=== PATIENT | male | born 1970 | race Caucasian/White ===

== ENCOUNTER 2019-08-16 21:17 | Inpatient (IN) | payer OTHER ==
[2019-08-16] MEDS ORDERED: Aggrastat 12.5 MG/250 ML 250 ML ONE (22:04)
[2019-08-16] MEDS ORDERED: Clopidogrel Bisulfate 300 MG TAB ONE (22:04)
[2019-08-16] MEDS ORDERED: Heparin 10,000 UNITS/1 ML VIAL ONE (22:31)
[2019-08-16] MEDS ORDERED: Zolpidem Tartrate 5 MG TAB PO PRN (22:39)
[2019-08-16] MEDS ORDERED: Morphine 2 MG/ML SYRINGE SLOW IVP PRN (22:39)
[2019-08-16] MEDS ORDERED: Nitroglycerin 0.4 MG TAB (25 Tab Bottle) SL PRN (22:39)
[2019-08-16] MEDS ORDERED: Morphine 4 MG/ML VIAL SLOW IVP PRN (22:39)
[2019-08-16] MEDS ORDERED: Sodium Chloride 0.9% 1,000 ML IV SCH (22:45)
[2019-08-16 23:11] VITALS: BMI 44.6
[2019-08-16] MEDS: Aggrastat 12.5 MG/250 ML 250 ML IVPB SCH (23:47)
[2019-08-17 00:18] LABS: Troponin I 9.933 ng/mL (< 0.028)
--- NOTE | 2019-08-17 01:05 | HP ---
HISTORY OF PRESENT ILLNESS: Shaun Sales is a 48-year-old white male, who presented to [facility] with chest discomfort. He states that in 2011, he had a myocardial infarction and was hospitalized at [facility]. He never did have a cardiac catheterization because he said he did not have insurance at the time. He did see Dr. Chinchilla in April 2018 and underwent Lexiscan Cardiolite testing, which revealed no evidence of ischemia. Echo ejection fraction was 60% to 65% with diastolic dysfunction, mild tricuspid regurgitation , mild mitral regurgitation, mild concentric left ventricular hypertrophy. He never did return for followup. He states he has not been having any problems. He has not had any chest pain, shortness of breath, fever, or cough. Tonight at approximately 8:00 p.m., he began to have onset of substernal chest pressure associated with diaphoresis, nausea, and vomiting twice. He denies any significant shortness of breath. He went to the hospital in [place], was found to have on his EKG, normal sinus rhythm, left axis deviation, incomplete right bundle-branch block. There was [address]-segment elevation in II, III, and AVF, along with reciprocal changes in aVL and V2. He was given aspirin, intravenous fentanyl, intravenous metoprolol. He was then transferred here after he received 7000 units of heparin. He was taken directly to the cardiac mill laborer. PAST MEDICAL HISTORY: He denies any history of hypertension, diabetes, or hypercholesterolemia. He states he had MO in 2011. MEDICATIONS: None. ALLERGIES: NONE. OPERATIONS: None. SOCIAL HISTORY: He smoked many years ago. He does not drink. FAMILY HISTORY: Father had myocardial infarction. REVIEW OF SYSTEMS: Unremarkable. PHYSICAL EXAMINATION: VITAL SIGNS: Blood pressure 130/82, pulse of 90. HEENT: PERRL. CHEST: Clear. CARDIAC: S1 and S2 normal without any S3, S4, or murmurs. Carotid upstrokes normal without bruits. ABDOMEN: Obese. Normal bowel sounds. No tenderness or organomegaly. EXTREMITIES: Revealed 1+ pretibial edema. NEUROLOGIC: Grossly intact. SKIN: Warm and dry. LABORATORY DATA: EKG findings as described above. Hemoglobin 17.7, hematocrit 58.0, white count 9400. Sodium 140, potassium 3.8, chloride 105, carbon dioxide 23, BUN 11, creatinine 1.37, glucose 132. Troponin I of 0.038. IMPRESSION: 1. Inferior ST-elevation myocardial infarction. 2. History of previous myocardial infarction in 2011. 3. Distant smoker. 4. Positive family history. 5. Obesity. 6. Renal insufficiency. PLAN: The patient was taken to the cardiac mill lab[facility] and found to have totally occluded distal right coronary artery and underwent drug-eluting stent placement. At the current time post procedure, he is pain free. Job ID: [id number] [facility]
[2019-08-17] MEDS: cloNIDine 0.1 MG TAB PO PRN ×2 (01:28→12:39)
[2019-08-17] MEDS: Aggrastat 12.5 MG/250 ML 250 ML IVPB SCH ×2 (04:05→12:36)
[2019-08-17 04:20] LABS: #Lymphocytes 1.9 thou/uL (1.20-3.40); #Monocytes 0.9 thou/uL (0.11-0.59); #Neutrophils 9.7 thou/uL (1.40-6.50); %Basophils 0.3 % (0.0-1.0); %Eosinophils 0.2 % (0.0-10.0); %Lymphocytes 15.3 % (21.0-51.0); %Monocytes 7.4 % (0.0-10.0); %Neutrophils 76.8 % (42.0-75.0); Hemoglobin 14.7 g/dL (14.0-18.0); Mean Corpuscular HGB CONC 34.8 g/dL (32.0-36.0); Mean Corpuscular Hemoglobin 31.6 pg (27.0-31.0); Mean Corpuscular Volume 90.8 fL (78.0-98.0); Mean Platelet Volume 8.7 fL (7.4-10.4); Platelet Count 199 thou/uL (130-400); RBC Distribution Width 12.6 % (11.5-14.5); Red Blood Cell (RBC) Count 4.65 mill/uL (4.70-6.10); White Blood Cell (WBC) Count 12.7 thou/uL (4.8-10.8)
[2019-08-17 04:41] LABS: ALT (SGPT) 58 U/L (8-55); AST (SGOT) 88 U/L (5-34); Albumin 3.4 g/dL (3.5-5.0); Alkaline Phosphatase 85 U/L (40-110); Anion Gap 11 mmol/L (10-20); BUN (Urea Nitrogen) 10 mg/dL (8.9-20.6); Bilirubin, Total 0.4 mg/dL (0.2-1.2); Calc. Creatinine Clearance 231 mL/min (70-130); Calcium 8.1 mg/dL (7.8-10.44); Carbon Dioxide 23 mmol/L (22-29); Cardiac Risk 7.3 (Less than 4.5); Chloride 107 mmol/L (98-107); Cholesterol 182 mg/dl (< 200 Desired); Estimated GFR-MDRD 89; Glucose 114 mg/dL (70-105); HDL Cholesterol 25 mg/dL (>60 Neg Risk); LDL Cholesterol, Calculated 124 mg/dL; Potassium 4.4 mmol/L (3.5-5.1); Protein, Total 6.4 g/dL (6.0-8.3); Sodium 137 mmol/L (136-145); Triglycerides 164 mg/dL (Less than 150)
[2019-08-17 04:50] LABS: Troponin I 24.831 ng/mL (< 0.028)
[2019-08-17 08:24] LABS: Critical Call Chem Troponin I RESULT DECREASING; Troponin I 23.942 ng/mL (< 0.028)
[2019-08-17] MEDS: Aspirin Chewable 81 MG TAB PO SCH (09:06)
[2019-08-17] MEDS: Clopidogrel Bisulfate 75 MG TAB PO SCH (09:06)
[2019-08-17] MEDS ORDERED: Metoprolol Tartrate 25 MG TAB PO SCH (13:00)
[2019-08-17] MEDS: Metoprolol Tartrate 50 MG TAB PO SCH (20:43)
[2019-08-17] MEDS: Atorvastatin Calcium 40 MG TAB PO SCH (20:44)
[2019-08-18 05:46] LABS: ALT (SGPT) 57 U/L (8-55); AST (SGOT) 73 U/L (5-34); Albumin 3.6 g/dL (3.5-5.0); Alkaline Phosphatase 86 U/L (40-110); Anion Gap 11 mmol/L (10-20); BUN (Urea Nitrogen) 9 mg/dL (8.9-20.6); Bilirubin, Total 0.8 mg/dL (0.2-1.2); Calc. Creatinine Clearance 234 mL/min (70-130); Calcium 8.7 mg/dL (7.8-10.44); Carbon Dioxide 23 mmol/L (22-29); Chloride 104 mmol/L (98-107); Estimated GFR-MDRD 90; Glucose 104 mg/dL (70-105); Potassium 3.9 mmol/L (3.5-5.1); Protein, Total 6.6 g/dL (6.0-8.3); Sodium 134 mmol/L (136-145)
[2019-08-18] MEDS: Aspirin Chewable 81 MG TAB PO SCH (08:46)
[2019-08-18] MEDS: Clopidogrel Bisulfate 75 MG TAB PO SCH (08:46)
[2019-08-18] MEDS: Metoprolol Tartrate 50 MG TAB PO SCH ×2 (08:46→20:08)
--- NOTE | 2019-08-18 10:10 | PDOC.CPN ---
- Subjective Date: 08/18/19 Time: 10:07 Interval history: No overnight events. Walked in [place] without difficulty. - Review of Systems General: denies: fever/chills, weight/appetite/sleep changes, night sweats, fatigue Respiratory: denies: cough, congestion, shortness of breath, exercise intolerance Cardiovascular: reports: edema. denies: chest pain, palpitation, paroxysmal nocturnal dyspnea, orthopnea Gastrointestinal: denies: nausea, vomiting, diarrhea, constipation, abd pain, GI bleeding Musculoskeletal: denies: pain, tenderness, stiffness, swelling, arthritis/ arthralgias Neurological: denies: numbness, syncope, seizure, weakness - Objective Allergies/Adverse Reactions: Allergies Allergy/AdvReac Type Severity Reaction Status Date / Time No Known Drug Allergies Allergy Verified 08/16/19 23:26 Visit Medications: Current Medications Aspirin (Aspirin Chewable) 81 mg PO DAILY [facility] Last Admin: 08/18/19 08:46 Dose: 81 mg Atorvastatin Calcium (Lipitor) 40 mg PO HS [facility] Last Admin: 08/17/19 20:44 Dose: 40 mg Clonidine (Catapres) 0.1 mg PO Q2H PRN PRN Reason: SBP GREATER THAN 160 Last Admin: 08/17/19 12:39 Dose: 0.1 mg Clopidogrel Bisulfate (Plavix) 75 mg PO DAILY [facility] Last Admin: 08/18/19 08:46 Dose: 75 mg Losartan Potassium (Cozaar) 25 mg PO 1800 JACQUES Metoprolol Tartrate (Lopressor) 50 mg PO BID [facility] Last Admin: 08/18/19 08:46 Dose: 50 mg Morphine Sulfate (Morphine) 2 mg SLOW IVP Q4H PRN PRN Reason: Moderate Chest Pain (4-6) Morphine Sulfate (Morphine) 4 mg SLOW IVP Q4H PRN PRN Reason: Severe Chest Pain (7-10) Nitroglycerin (Nitrostat) 0.4 mg SL Q5MIN PRN PRN Reason: Chest Pain Sodium Chloride (Flush - Normal Saline) 10 ml IVF Q12HR [facility] Last Admin: 08/18/19 08:47 Dose: 10 ml Zolpidem Tartrate (Ambien) 5 mg PO HSPRN PRN PRN Reason: Insomnia Last Admin: 08/16/19 23:46 Dose: 5 mg Vital Signs & Weight: Vital Signs Temp Pulse Resp BP Pulse Ox 08/18/19 07:50 98.0 F 66 14 151/86 H 95 08/18/19 03:38 97.7 F 68 20 135/86 97 Weight 366 lb - Physical Exam General: alert & oriented x3, appears well HEENT: mucus membranes moist Neck: supple neck Cardiac: regular rate and rhythm Lungs: clear to auscultation Neuro: grossly intact Abdomen: soft, non-tender Extremities: no cyanosis, 1+ LE edema Skin: clear - Labs Result Diagrams: 08/17/19 04:00 08/18/19 04:50 Troponin/CKMB Troponin I 23.942 ng/mL (< 0.028) H* 08/17/19 07:39 - Assessment/Plan Assessment/Plan: 1. s/p inferior STEMI 2. CAD s/p HAI-RCA 3. Obesity 4. HTN 5. NSVT - probable reperfusion. 6. Venous Disease 7. LFTs Monitor rhythm one more day. Continue Plavix, ASA, bblocker. Hold on statin for now given LFTs. May need outpatient GI work-up. Add ARB. RG 08/18/2019 Pt seen and examined Agree with the above BB, statin asa and plavix ambulate
[2019-08-18] MEDS: Atorvastatin Calcium 40 MG TAB PO SCH (20:08)
[2019-08-19] MEDS ORDERED: Losartan 25 MG TAB PO SCH ×2 (09:00→18:00)
--- NOTE | 2019-08-19 09:13 | PDOC.CPN ---
- Subjective Date: 08/19/19 Time: 09:11 Interval history: No overnight events. States he's feeling great. - Review of Systems General: denies: fever/chills, weight/appetite/sleep changes, night sweats, fatigue Respiratory: denies: cough, congestion, shortness of breath, exercise intolerance Cardiovascular: reports: edema. denies: chest pain, palpitation, paroxysmal nocturnal dyspnea, orthopnea Gastrointestinal: denies: nausea, vomiting, diarrhea, constipation, abd pain, GI bleeding Musculoskeletal: denies: pain, tenderness, stiffness, swelling, arthritis/ arthralgias Neurological: denies: numbness, syncope, seizure, weakness - Objective Allergies/Adverse Reactions: Allergies Allergy/AdvReac Type Severity Reaction Status Date / Time No Known Drug Allergies Allergy Verified 08/16/19 23:26 Visit Medications: Current Medications Aspirin (Aspirin Chewable) 81 mg PO DAILY [facility] Last Admin: 08/18/19 08:46 Dose: 81 mg Atorvastatin Calcium (Lipitor) 40 mg PO HS [facility] Last Admin: 08/18/19 20:08 Dose: 40 mg Clonidine (Catapres) 0.1 mg PO Q2H PRN PRN Reason: SBP GREATER THAN 160 Last Admin: 08/17/19 12:39 Dose: 0.1 mg Clopidogrel Bisulfate (Plavix) 75 mg PO DAILY [facility] Last Admin: 08/18/19 08:46 Dose: 75 mg Losartan Potassium (Cozaar) 50 mg PO DAILY [facility] Metoprolol Tartrate (Lopressor) 50 mg PO BID [facility] Last Admin: 08/18/19 20:08 Dose: 50 mg Morphine Sulfate (Morphine) 2 mg SLOW IVP Q4H PRN PRN Reason: Moderate Chest Pain (4-6) Morphine Sulfate (Morphine) 4 mg SLOW IVP Q4H PRN PRN Reason: Severe Chest Pain (7-10) Nitroglycerin (Nitrostat) 0.4 mg SL Q5MIN PRN PRN Reason: Chest Pain Sodium Chloride (Flush - Normal Saline) 10 ml IVF Q12HR [facility] Last Admin: 08/18/19 20:08 Dose: 10 ml Zolpidem Tartrate (Ambien) 5 mg PO HSPRN PRN PRN Reason: Insomnia Last Admin: 08/16/19 23:46 Dose: 5 mg Vital Signs & Weight: Vital Signs Temp Pulse Resp BP BP Pulse Ox 08/19/19 07:57 97.9 F 68 14 159/94 H 98 08/19/19 04:38 98 F 59 L 18 121/66 96 08/18/19 23:12 158/91 H Weight 370 lb 9.6 oz - Physical Exam General: alert & oriented x3, appears well HEENT: mucus membranes moist Neck: supple neck Cardiac: regular rate and rhythm Lungs: clear to auscultation Neuro: grossly intact Abdomen: soft, non-tender Extremities: no cyanosis, no clubbing, other: (RLE edema/venous disease) Skin: clear - Labs Result Diagrams: 08/17/19 04:00 08/18/19 04:50 Troponin/CKMB Troponin I 23.942 ng/mL (< 0.028) H* 08/17/19 07:39 - Assessment/Plan Assessment/Plan: 1. s/p Inferior STEMI 2. CAD s/p PCI - distal RCA 3. HTN 4. Venous Disease 5. Elevated LFTs 6. Probable ALLEGRA 7. ICMO Increase losartan. Continue Toprol for now. Could consider changing to Coreg in the future. Plan for venous work-up as outpatient. Needs ALLEGRA evaluation. Advised weight loss. Plavix/ASA for minimum one year.
[2019-08-19] MEDS: Metoprolol Tartrate 50 MG TAB PO SCH (09:34)
[2019-08-19] MEDS: Clopidogrel Bisulfate 75 MG TAB PO SCH (09:34)
[2019-08-19] MEDS: Aspirin Chewable 81 MG TAB PO SCH (09:34)
[2019-08-19 10:37] VITALS: TEMP 98.4
[2019-08-19 12:35] VITALS: BP 167/94
--- NOTE | 2019-08-20 11:36 | EKG ---
Test Reason : Blood Pressure : / mmHG Vent. Rate : 070 BPM Atrial Rate : 070 BPM P-R Int : 184 ms QRS Dur : 112 ms QT Int : 416 ms P-R-T Axes : 063 -64 059 degrees QTc Int : 449 ms Normal sinus rhythm Non-specific intra-ventricular conduction delay Left axis deviation Abnormal ECG Confirmed by LUIS PADILLA ([id number]) on 08/20/2019 11:36:07 AM Referred By: CAROLYN Confirmed By:LUIS PADILLA
== END 2019-08-19 11:28 | disposition home or self-care (01) | DRG 247 ==
LOC: CCL 21:17 → CCU 22:29 → 2NO 08-17 15:13
PROVIDERS: ADMIT Internal Medicine Cardiovascular Disease; ATTEND Internal Medicine Cardiovascular Disease
PROC: 027034Z Dilation of Coronary Artery, One Artery with Drug-eluting Intraluminal Device, Percutaneous Approach (ICD-10-PCS; principal; 2019-08-16)
PROC: 02C03ZZ Extirpation of Matter from Coronary Artery, One Artery, Percutaneous Approach (ICD-10-PCS; 2019-08-16)
PROC: 4A023N7 Measurement of Cardiac Sampling and Pressure, Left Heart, Percutaneous Approach (ICD-10-PCS; 2019-08-16)
PROC: B2111ZZ Fluoroscopy of Multiple Coronary Arteries using Low Osmolar Contrast (ICD-10-PCS; 2019-08-16)
PROC: B2151ZZ Fluoroscopy of Left Heart using Low Osmolar Contrast (ICD-10-PCS; 2019-08-16)
PROC: 3E033PZ Introduction of Platelet Inhibitor into Peripheral Vein, Percutaneous Approach (ICD-10-PCS; 2019-08-16)
PROC: 3E03317 Introduction of Other Thrombolytic into Peripheral Vein, Percutaneous Approach (ICD-10-PCS; 2019-08-16)
DX: I21.19 ST elevation (STEMI) myocardial infarction involving other coronary artery of inferior wall (principal); Z68.42 Body mass index [BMI] 45.0-49.9, adult; I47.2 Ventricular tachycardia; I08.1 Rheumatic disorders of both mitral and tricuspid valves; F17.200 Nicotine dependence, unspecified, uncomplicated; E66.9 Obesity, unspecified; N28.9 Disorder of kidney and ureter, unspecified; I25.10 Atherosclerotic heart disease of native coronary artery without angina pectoris; I10 Essential (primary) hypertension; I87.8 Other specified disorders of veins; R79.89 Other specified abnormal findings of blood chemistry; I25.5 Ischemic cardiomyopathy; I25.2 Old myocardial infarction; G47.33 Obstructive sleep apnea (adult) (pediatric)
CPT/HCPCS: 36415; 80053; 80061; 83036; 84484; 85025; 85347; 92941; 92977; 93005; 93010; 93306; 93458; 93798; C1874; C9606; J1644; J3246

== ENCOUNTER 2020-11-12 10:41 | Outpatient (CLI) | payer OTHER ==
[2020-11-12 12:29] LABS: #Basophils 0.1 10x3/uL (0.0-0.2); #Eosinphils 0.1 10x3/uL (0.0-0.5); #Monocytes 0.8 10x3/uL (0.0-1.1); #Neutrophils 3.8 10x3/uL (1.5-8.4); %Basophils 0.8 % (0.0-2.0); %Eosinophils 1.8 % (0.0-6.0); %Lymphocytes 39.7 % (18.0-47.0); %Monocytes 9.8 % (0.0-10.0); %Neutrophils 47.6 % (40.0-75.0); Hemoglobin 15.2 g/dL (13.5-17.5); Mean Corpuscular HGB CONC 33.9 g/dL (32.0-36.0); Mean Corpuscular Hemoglobin 30.5 pg (27.0-33.0); Mean Corpuscular Volume 89.8 fl (81.2-95.1); Mean Platelet Volume 10.6 fl (7.4-10.4); Platelet Count 202 10x3/uL (150-450); RBC Distribution Width 13.4 % (11.5-14.5); Red Blood Cell (RBC) Count 4.99 10x6/uL (4.32-5.72)
[2020-11-12 12:50] LABS: ALT (SGPT) 38 U/L (8-55); AST (SGOT) 22 U/L (5-34); Albumin 4.1 g/dL (3.5-5.0); Alkaline Phosphatase 83 U/L (40-110); Anion Gap 12 mmol/L (10-20); BUN (Urea Nitrogen) 11 mg/dL (8.4-25.7); Bilirubin, Total 0.6 mg/dL (0.2-1.2); Calc. Creatinine Clearance 0 mL/min (70-130); Calcium 9.5 mg/dL (7.8-10.44); Carbon Dioxide 23 mmol/L (22-29); Chloride 107 mmol/L (98-107); Globulin 2.8 g/dL (2.4-3.5); Glucose 106 mg/dL (70-105); Potassium 4.5 mmol/L (3.5-5.1); Protein, Total 6.9 g/dL (6.0-8.3); Sodium 137 mmol/L (136-145)
[2020-11-13 02:13] LABS: SARS-CoV-2 PCR by NAA Not Detected (NotDetected)
== END 2020-11-12 10:42 | disposition home or self-care (01) ==
LOC: LABBT 10:41
PROVIDERS: ATTEND Internal Medicine Cardiovascular Disease
DX: Z01.818 Encounter for other preprocedural examination (principal); R07.89 Other chest pain; Z20.822 Contact with and (suspected) exposure to COVID-19
CPT/HCPCS: 80053; 85025; 93005; 93010; U0003; U0005

== ENCOUNTER 2020-11-17 05:57 | Day surgery (SDC) | payer OTHER ==
[2020-11-14 10:47] VITALS: BMI 41.5
[2020-11-17 07:42] LABS: Cardiac Risk 3.4 (Less than 4.5)
[2020-11-17] MEDS ORDERED: Heparin 10,000 UNITS/ 10 ML VIAL ONE ×2 (08:39→09:22)
[2020-11-17] MEDS ORDERED: Verapamil 5 MG/2 ML VIAL ONE ×2 (08:39→09:24)
[2020-11-17] MEDS ORDERED: Lidocaine 1% (PF) 30 ML VIAL ONE (08:40)
[2020-11-17] MEDS ORDERED: Nitroglycerin 100MG/250ML BOT 250 ML ONE (08:40)
[2020-11-17] MEDS ORDERED: Midazolam HCl 2 mg/2 ml Vial ONE (09:05)
[2020-11-17] MEDS ORDERED: Fentanyl 100 MCG/2 ML VIAL ONE (09:06)
[2020-11-17] MEDS ORDERED: Enalaprilat Dihydrate 1.25 MG/ML VIAL ONE (09:24)
[2020-11-17] MEDS ORDERED: Clopidogrel Bisulfate 300 MG TAB ONE (09:39)
[2020-11-17] MEDS ORDERED: Iopamidol 370 76% 100 ML VIAL ONE (12:01)
[2020-11-17] MEDS ORDERED: Iopamidol 370 76% 50 ML VIAL FS ONE (12:01)
== END 2020-11-17 14:23 | disposition home or self-care (01) ==
LOC: CCL 05:57
PROVIDERS: ATTEND Internal Medicine Cardiovascular Disease
PROC: 027034Z Dilation of Coronary Artery, One Artery with Drug-eluting Intraluminal Device, Percutaneous Approach (ICD-10-PCS; principal; 2020-11-17)
PROC: 4A023N7 Measurement of Cardiac Sampling and Pressure, Left Heart, Percutaneous Approach (ICD-10-PCS; principal; 2020-11-17)
PROC: B2111ZZ Fluoroscopy of Multiple Coronary Arteries using Low Osmolar Contrast (ICD-10-PCS; principal; 2020-11-17)
DX: I25.119 Atherosclerotic heart disease of native coronary artery with unspecified angina pectoris (principal); I25.2 Old myocardial infarction; R60.0 Localized edema; Z79.02 Long term (current) use of antithrombotics/antiplatelets; Z79.82 Long term (current) use of aspirin; Z79.899 Other long term (current) drug therapy; Z95.5 Presence of coronary angioplasty implant and graft
CPT/HCPCS: 80061; 85347; 92928; 93005; 93458; 97139; 99152; 99153; C1769; C9600; J1644; J2001; J2250; J3010; Q9967